=== PATIENT | female | born 1955 ===

== ENCOUNTER 2018-12-13 08:52 | Outpatient (CLI) | payer MEDICARE, BC ==
--- NOTE | 2018-12-13 10:43 | ULT ---
ULTRASOUND ABDOMEN LIMITED: (RIGHT UPPER QUADRANT) HISTORY: Epigastric pain FINDINGS: The gallbladder has normal wall thickness and has no evidence of gallstones or sludge. The hepatic e chogenicity is normal. The right kidney has normal echogenicity and has no hydronephrosis. The panc reas is visualized, although ultrasound is relatively insensitive for pancreatic pathology compared t o CT and MRI. There is no biliary dilation. The common duct caliber is 4 mm. In the midpole parench yma of the right kidney, there is an approximately 0.5 cm irregularly shaped hyperechoic focus witho ut shadowing. This is nonspecific. It could represent a tiny angiomyolipoma. IMPRESSION: 1. No sonographic evidence of cholelithiasis, acute cholecystitis, or biliary obstruction. 2. Nonspecific tiny hyperechoic lesion in the right kidney. 3. Otherwise negative. jn POS: [facility]
== END 2018-12-13 08:53 | disposition home or self-care (01) ==
LOC: BICULT 08:52
PROVIDERS: ATTEND Internal Medicine Gastroenterology
DX: R10.13 Epigastric pain (principal); R07.9 Chest pain, unspecified; K21.9 Gastro-esophageal reflux disease without esophagitis; E83.110 Hereditary hemochromatosis; N28.9 Disorder of kidney and ureter, unspecified
CPT/HCPCS: 76705